=== PATIENT | male | born 1975 | race African-American/Black ===

== ENCOUNTER 2017-04-15 11:35 | Emergency (ER) | payer OTHER ==
[~2017-04-15] VITALS: Ht 188 cm; Wt 117.9 kg
[~2017-04-15 11:35] MED LIST: AMOXICILLIN875 MG PO; AUGMENTIN 875-1 EACH PO; NORCO 5-325 TA1 EACH PO
[2017-04-15 12:33] LABS: CALCIUM 8.8 mg/dL (8.5-10.1); CREATININE 1.4 mg/dL (0.7-1.3); POTASSIUM 4.1 mmol/L (3.5-5.1)
[2017-04-15 12:36] LABS: HEMATOCRIT 40.7 % (42.0-52.0); HEMOGLOBIN 14.5 gm/dL (14.0-18.0); MCH 33.4 pg (26.0-34.0); MCHC 35.7 g/dL (28.0-37.0); MCV 93.6 fL (80.0-100.0); PLATELET COUNT 186 thou/uL (150-400); RBC 4.35 mil/uL (4.50-6.00); RDW 15.5 % (10.5-14.5); WBC 9.8 thou/uL (4.0-11.0)
[2017-04-15 12:37] LABS: MANUAL DIFF YES
[2017-04-15 13:01] LABS: ABSOLUTE NEUTROPHILS 6.6 thou/uL (1.4-8.2); TOTAL CELL COUNT 100
[2017-04-15 13:02] LABS: ANISOCYTOSIS 1+; POLYCHROMASIA OCCASIONAL
[2017-04-15] MEDS ORDERED: ZOFRAN ODT4 M1 PO (14:41)
[2017-04-15] MEDS ORDERED: SENNA-DOCUSATE1 EACH PO (14:41)
[2017-04-15] MEDS ORDERED: NORCO 7.5-3251 EACH PO (14:41)
[2017-04-15] MEDS ORDERED: AUGMENTIN 875-1 EACH PO (14:41)
[2017-04-15] MEDS ORDERED: IBUPROFEN 600600 M1 PO (14:41)
[2017-04-15 14:49] VITALS: BP 91/54
== END 2017-04-15 14:51 | disposition home or self-care (01) ==
LOC: ER 11:35
PROVIDERS: Emergency Medicine
DX: K61.0 Anal abscess (principal); F10.99 Alcohol use, unspecified with unspecified alcohol-induced disorder; Z86.14 Personal history of Methicillin resistant Staphylococcus aureus infection